=== PATIENT | female | born 1990 | race African-American/Black ===

== ENCOUNTER 2018-09-11 03:49 | Inpatient (IN) | payer MEDICAID ==
[~2018-09-11] VITALS: Ht 157.5 cm; Wt 102.5 kg
[2018-09-11] VITALS (10 sets, daily range): BP systolic 99–119; BP diastolic 39–81
[2018-09-11] MEDS ORDERED: LACTATED RINGER'S 1,000 ML IV SCH (03:57)
[2018-09-11 04:44] LABS: Basophils # (auto) 0 uL; Hematocrit 33.4 % (36.0-46.0); Hemoglobin 10.4 g/dL (12.2-16.2); Lymphocytes # (auto) 1.8 uL; Monocytes # (auto) 0.4 uL; Neutrophils # (auto) 3.3 uL
[2018-09-11 04:46] LABS: Basophils % (auto) 0.8 % (0.0-2.0); Eosinophils # (auto) 0 uL; Eosinophils % (auto) 0.7 % (0.0-7.0); Lymphocytes % (auto) 32.4 % (10.0-50.0); Mean Corpuscular Hemoglobin 22.8 pg (28.0-32.0); Mean Corpuscular Hgb Conc. 31.3 g/dL (32.0-36.0); Monocytes % (auto) 6.7 % (0.0-12.0); Neutrophils % (auto) 59.4 % (37.0-80.0); Nucleated Red Blood Cells % 0.1 %; Platelet Count (auto) 245 10^3/uL (140-450); Red Blood Cells 4.57 10^6/uL (4.0-5.20); Red Cell Distribution Width 15.9 % (11.8-14.3); White Blood Cell 5.5 10^3/uL (4.4-10.8)
[2018-09-11 04:57] LABS: Urine Amorphous Crystal FEW /hpf (None Seen); Urine Bacteria FEW /hpf (None Seen); Urine Blood Negative /uL (Negative); Urine Mucus FEW (None Seen); Urine Specific Gravity 1.023 (1.001-1.035); Urine WBC 4 /hpf (0 - 5)
[2018-09-11 05:00] LABS: Albumin 2.9 g/dL (3.4-5.0); Calcium 8.4 mg/dL (8.5-10.1); Potassium 3.8 mmol/L (3.5-5.1)
[2018-09-11 05:01] LABS: Alcohol, Urine < 3.0 mg/dL (0-5); Amphetamine Screen, Urine NEGATIVE (NEGATIVE); Barbiturate Scree,Urine NEGATIVE (NEGATIVE); Benzodiazephine Screen, Urine NEGATIVE (NEGATIVE); Cannabinoid Screen, Urine NEGATIVE (NEGATIVE); Cocaine Screen, Urine NEGATIVE (NEGATIVE); Opiate Scree,Urine NEGATIVE (NEGATIVE); Phencyclidine Screen, Urine NEGATIVE (NEGATIVE)
[2018-09-11 05:02] LABS: BUN/Creatinine Ratio 10.8
[2018-09-11 05:04] LABS: Bilirubin, Total 0.3 mg/dL (0.2-1.0); Total Protein 7.6 g/dL (6.4-8.2)
[2018-09-11 05:28] LABS: INR 0.87 (0.9-1.15); Partial Thromboplastin Time 27.5 sec (23.78-33.04); Prothrombin Time 9.4 sec (9.27-12.13)
[2018-09-11] MEDS ORDERED: PHENYLEPHRINE HCL 10 MG/ML VL IV ONE (08:15)
[2018-09-11] MEDS ORDERED: TETRACAINE 1% INJ 2 ML VIAL IJ ONE (08:25)
[2018-09-11] MEDS ORDERED: MORPHINE SULF(PF) 0.5MG/ML 10ML VIAL ONE (08:38)
[2018-09-11] MEDS ORDERED: fentaNYL CITRATE 100 MCG/2 ML VL ONE (08:38)
[2018-09-11] MEDS ORDERED: MIDAZOLAM HCL 1MG/1ML-2 ML VIAL ONE ×2 (08:38→09:38)
[2018-09-11] MEDS ORDERED: OXYTOCIN 10 UNIT/ML 10ML VIAL ONE (08:51)
[2018-09-11] MEDS ORDERED: CLINDAMYCIN 900MG IV 50 ML IV ONE (09:57)
[2018-09-11] MEDS ORDERED: diphenhdrAMINE HCL 50 MG/1 ML VL IV PRN (10:00)
[2018-09-11] MEDS ORDERED: DEXAMETHASONE SOD PHOS 10MG/1ML VIAL INJ IV PRN (10:00)
[2018-09-11] MEDS ORDERED: HYDROmorphone HCL 2 MG/ML VL IV PRN ×2 (10:00)
[2018-09-11] MEDS ORDERED: NALOXONE HCL 0.4 MG/ML VIAL IV PRN (10:00)
[2018-09-11] MEDS ORDERED: NALBUPHINE HCL 10 MG/1ml INJECTION SUBCUT ONE (10:00)
[2018-09-11] MEDS ORDERED: MIDAZOLAM HCL 1MG/1ML-2 ML VIAL IV PRN (10:00)
[2018-09-11] MEDS ORDERED: ePHEDrine SULFATE 50 MG/ML AMP IV PRN (10:00)
[2018-09-11] MEDS ORDERED: LABETALOL HCL 5 MG/ML 4ML SYRINGE IV PRN (10:00)
[2018-09-11] MEDS ORDERED: ONDANSETRON HCL 4 MG/2 ML VIAL IV PRN ×2 (10:00)
[2018-09-11] MEDS: LACTATED RINGER'S 1,000 ML IV SCH ×2 (11:33→15:46)
[2018-09-11] MEDS: KETOROLAC TROMETH 30 MG/ML 1ML VIAL IV SCH ×2 (12:00→17:40)
[2018-09-11] MEDS: CLINDAMYCIN 900MG IV 50 ML IV SCH (17:40)
[2018-09-12] VITALS (8 sets, daily range): BP systolic 97–123; BP diastolic 44–69
[2018-09-12] MEDS: LACTATED RINGER'S 1,000 ML IV SCH ×2 (01:30→06:30)
[2018-09-12] MEDS: KETOROLAC TROMETH 30 MG/ML 1ML VIAL IV SCH ×5 (01:33→23:17)
[2018-09-12] MEDS: CLINDAMYCIN 900MG IV 50 ML IV SCH ×2 (02:15→10:51)
[2018-09-12 06:43] LABS: Basophils # (auto) 0 uL; Basophils % (auto) 0.2 % (0.0-2.0); Eosinophils # (auto) 0.1 uL; Eosinophils % (auto) 1.1 % (0.0-7.0); Monocytes # (auto) 0.3 uL
[2018-09-12 06:45] LABS: Hematocrit 28.3 % (36.0-46.0); Lymphocytes # (auto) 0.7 uL; Mean Corpuscular Hgb Conc. 31.6 g/dL (32.0-36.0); Mean Corpuscular Volume 72.9 fL (80.0-100.0); Monocytes % (auto) 6.1 % (0.0-12.0); Neutrophils # (auto) 4.3 uL; Neutrophils % (auto) 79.6 % (37.0-80.0); Platelet Count (auto) 191 10^3/uL (140-450); Red Blood Cells 3.89 10^6/uL (4.0-5.20); Red Cell Distribution Width 15.8 % (11.8-14.3); White Blood Cell 5.3 10^3/uL (4.4-10.8)
[2018-09-12 07:07] LABS: RPR Non Reactive (Non Reactive)
[2018-09-12] MEDS ORDERED: HYDROcodone-ACET 5/325MG TAB PO PRN (10:15)
[2018-09-12] MEDS: HYDROcodone-ACET 5/325MG TAB PO PRN ×2 (16:46→20:25)
[2018-09-12] MEDS: DOCUSATE SOD 100 MG CAP PO SCH (23:23)
[2018-09-13 03:05] VITALS: BP 110/51
[2018-09-13] MEDS: KETOROLAC TROMETH 30 MG/ML 1ML VIAL IV SCH (05:23)
[2018-09-13] MEDS ORDERED: PREN-129 PO (06:33)
[2018-09-13 07:00] VITALS: BP 128/69
[2018-09-13] MEDS: HYDROcodone-ACET 5/325MG TAB PO PRN ×2 (07:52→20:17)
[2018-09-13] MEDS: DOCUSATE SOD 100 MG CAP PO SCH ×2 (09:45→22:05)
[2018-09-13] MEDS: IBUPROFEN 800 MG TAB PO PRN (14:06)
[2018-09-13 15:05] VITALS: BP 118/64
[2018-09-13 19:00] VITALS: BP 123/51
[2018-09-13 23:01] VITALS: BP 109/83
[2018-09-14] MEDS: HYDROcodone-ACET 5/325MG TAB PO PRN ×2 (01:14→08:11)
[2018-09-14 02:52] VITALS: BP 117/53
[2018-09-14] MEDS: IBUPROFEN 800 MG TAB PO PRN (04:56)
[2018-09-14 06:59] VITALS: BP 123/69
== END 2018-09-14 09:40 | disposition home or self-care (01) | DRG 540 ==
LOC: LDRP 03:49
PROVIDERS: ADMIT Specialist; ATTEND Specialist
PROC: 0DNU0ZZ Release Omentum, Open Approach (ICD-10-PCS; 2018-09-11)
PROC: 10D00Z1 Extraction of Products of Conception, Low, Open Approach (ICD-10-PCS; principal; 2018-09-11 08:15)
DX: O34.211 Maternal care for low transverse scar from previous cesarean delivery (principal); K66.0 Peritoneal adhesions (postprocedural) (postinfection); Z37.0 Single live birth; Z3A.39 39 weeks gestation of pregnancy
CPT/HCPCS: 36415; 80053; 80307; 81001; 85025; 85610; 85730; 86592; 86850; 86900; 86901; G0378; J1885; J2250; J2590; J3490